=== PATIENT | male | born 1970 | race Caucasian/White ===

== ENCOUNTER 2023-06-01 21:03 | Inpatient (IN) | payer MEDICAID, OTHER ==
[~2023-06-01] VITALS: Ht 172.7 cm; Wt 89.9 kg
[2023-06-01] MEDS: SODIUM CHLORIDE 0.9% 1,000 ML IV ONE (00:45)
[2023-06-01 21:45] VITALS: PULSE 105; RESP 25; O2SAT 96
[2023-06-01 22:24] LABS: Basophils # (auto) 0 10 ^3/uL (0-0.2); Basophils % (auto) 0.1 % (0.0-2.0); Eosinophils # (auto) 0 10 ^3/uL (0-0.8); Eosinophils % (auto) 0.2 % (0.0-7.0); Hemoglobin 14.7 g/dL (13.5-17.5); Neutrophils # (auto) 10.8 10 ^3/uL (1.6-8.6); Nucleated Red Blood Cells % 0.3 %
[2023-06-01 22:26] LABS: Hematocrit 45.7 % (41.0-53.0); Lymphocytes # (auto) 0.4 10 ^3/uL (0.4-5.4); Lymphocytes % (auto) 3.9 % (10.0-50.0); Mean Corpuscular Hemoglobin 25.4 pg (28.0-32.0); Mean Corpuscular Hgb Conc. 32.2 g/dL (32.0-36.0); Mean Corpuscular Volume 78.7 fL (80.0-100.0); Monocytes # (auto) 0.2 10 ^3/uL (0-1.3); Monocytes % (auto) 1.6 % (0.0-12.0); Neutrophils % (auto) 94.2 % (37.0-80.0); Red Cell Distribution Width 16.7 % (11.8-14.3); White Blood Cell 11.4 10^3/uL (4.4-10.8)
[2023-06-01 22:42] LABS: Alanine Aminotransferase 32 U/L (7-40); Albumin 3.1 g/dL (3.2-4.8); Alkaline Phosphatase 412 U/L (46-116); Anion Gap 9 (5-15); Aspartate Aminotransferase 25 U/L (13-40); BUN/Creatinine Ratio 14.9 (10.0-20.0); Blood Urea Nitrogen 33 mg/dL (9-23); Calcium 9.6 mg/dL (8.7-10.4); Carbon Dioxide 23 mmol/L (20-30); Chloride 96 mmol/L (98-107); Glucose 136 mg/dL (74-106); Lipase 25 U/L (12-53); Potassium 4.3 mmol/L (3.5-5.1); Sodium 128 mmol/L (136-145)
[2023-06-01 22:43] LABS: Bilirubin, Total 5.1 mg/dL (0.2-1.0); Total Protein 6.1 g/dL (5.7-8.2)
[2023-06-01 22:46] LABS: INR 1.5 (0.9-1.15); Partial Thromboplastin Time 36.2 SEC (24.5-34.5); Prothrombin Time 15.3 sec (9.3-11.8)
[2023-06-01] MEDS: FUROSEMIDE 100 MG/10ML VIAL IV ONE (23:58)
[2023-06-02] MEDS: PIPERACILLIN-TAZO 4.5GM 100 ML IV ONE
[2023-06-02] MEDS: VANCOMYCIN 1GM/200ML 200 ML IV ONE (00:03)
[2023-06-02 00:20] LABS: Lactic Acid w/Reflex 4.3 mmol/L (0.4-2.0)
[2023-06-02] MEDS ORDERED: ACETAMINOPHEN 325 MG TAB PO PRN (00:45)
[2023-06-02] MEDS: SODIUM CHLORIDE 0.9% 1,000 ML IV SCH (00:45)
[2023-06-02] MEDS: AMPICILLIN & SULBACTAM SODIUM 3 GM in SODIUM CHL 0.9% 100 ML IV ONE (01:30)
[2023-06-02] MEDS: levoFLOXacin 750MG 150 ML IV ONE (03:25)
[2023-06-02] MEDS: MORPHINE SULFATE 4 MG/ML SYR/VIAL IV ONE (03:27)
[2023-06-02] MEDS: ONDANSETRON HCL 4 MG/2 ML VIAL IV ONE (03:28)
[2023-06-02 05:50] LABS: Basophils # (auto) 0 10 ^3/uL (0-0.2); Eosinophils # (auto) 0 10 ^3/uL (0-0.8); Hematocrit 43.3 % (41.0-53.0); Lymphocytes # (auto) 0.5 10 ^3/uL (0.4-5.4); Neutrophils # (auto) 12.2 10 ^3/uL (1.6-8.6); White Blood Cell 13.1 10^3/uL (4.4-10.8)
[2023-06-02 05:53] LABS: Basophils % (auto) 0.1 % (0.0-2.0); Eosinophils % (auto) 0.2 % (0.0-7.0); Hemoglobin 14.2 g/dL (13.5-17.5); Lymphocytes % (auto) 3.7 % (10.0-50.0); Mean Corpuscular Hgb Conc. 32.9 g/dL (32.0-36.0); Monocytes # (auto) 0.4 10 ^3/uL (0-1.3); Monocytes % (auto) 2.8 % (0.0-12.0); Neutrophils % (auto) 93.2 % (37.0-80.0); Nucleated Red Blood Cells % 0.6 %; Red Blood Cells 5.48 10^6/uL (4.5-5.90); Red Cell Distribution Width 16.8 % (11.8-14.3)
[2023-06-02 05:59] LABS: Alanine Aminotransferase 32 U/L (7-40); Alkaline Phosphatase 409 U/L (46-116); Anion Gap 12 (5-15); BUN/Creatinine Ratio 19.4 (10.0-20.0); Carbon Dioxide 19 mmol/L (20-30); Chloride 98 mmol/L (98-107); Glucose 119 mg/dL (74-106); Potassium 4.4 mmol/L (3.5-5.1); Sodium 129 mmol/L (136-145)
[2023-06-02 06:00] LABS: Albumin 2.6 g/dL (3.2-4.8); Aspartate Aminotransferase 28 U/L (13-40); Bilirubin, Total 5.9 mg/dL (0.2-1.0); Total Protein 5.1 g/dL (5.7-8.2)
[2023-06-02] MEDS ORDERED: NITROGLYCERIN 0.4 MG SL TAB SL PRN (06:00)
[2023-06-02] MEDS ORDERED: MORPHINE SULFATE INJ 2 MG/ml SYRG IV PRN (06:00)
[2023-06-02 06:16] LABS: Blood Urea Nitrogen 48 mg/dL (9-23)
[2023-06-02] MEDS: metroNIDAZOLE 500MG/100ML 100 ML IV SCH (06:18)
[2023-06-02] MEDS: ONDANSETRON HCL 4 MG/2 ML VIAL IV PRN (06:51)
[2023-06-02] MEDS: MORPHINE SULFATE INJ 2 MG/ml SYRG IV PRN (06:52)
[2023-06-02 07:32] VITALS: PULSE 113; RESP 13; O2SAT 91
[2023-06-02] MEDS: ALBUMIN 25% 100 ML IV ONE (08:37)
[2023-06-02] MEDS: cefTRIAXone 1GM/50ML D5W 50 ML IV SCH (09:26)
[2023-06-02 09:37] LABS: Urine Bacteria FEW /hpf (None Seen); Urine Blood TRACE /uL (Negative); Urine Clarity Turbid (Clear); Urine Color Dark-Yellow (Yellow); Urine Protein, UAD 2+ (Negative); Urine Sperm PRESENT /hpf (None Seen); Urine Urobilinogen 2 mg/dL (Negative); Urine WBC 2 /hpf (0 - 3); Urine pH 5.5 (5.0-9.0)
[2023-06-02 09:39] LABS: Amphetamine Screen, Urine Pos (NEGATIVE); Barbiturate Scree,Urine Neg (NEGATIVE); Benzodiazephine Screen, Urine Neg (NEGATIVE); Cannabinoid Screen, Urine Neg (NEGATIVE); Cocaine Screen, Urine Neg (NEGATIVE); Opiate Scree,Urine Neg (NEGATIVE); Phencyclidine Screen, Urine Neg (NEGATIVE)
[2023-06-02] MEDS ORDERED: VANCOMYCIN 1GM/200ML 200 ML IV SCH (10:00)
[2023-06-02] MEDS: CARVEDILOL 12.5 MG TAB PO ONE (17:21)
[2023-06-02 17:30] LABS: Triglycerides 152 mg/dL (< 150)
[2023-06-02 17:31] LABS: LDL Cholesterol 42 mg/dL (< 100)
[2023-06-02 17:32] LABS: Cholesterol 99 mg/dL (< 200); HDL Cholesterol < 5 mg/dL (40-59)
[2023-06-02] MEDS ORDERED: FUROSEMIDE 40 MG/4 ML VIAL IV SCH (18:00)
[2023-06-02 19:00] VITALS: O2SAT 98
[2023-06-02 20:30] VITALS: PULSE 98; RESP 19; O2SAT 97
[2023-06-02 21:16] VITALS: BP 129/86; PULSE 105; RESP 19; TEMP 97.7; O2SAT 98
[2023-06-02] MEDS: ATORVASTATIN 20 MG TAB PO SCH (22:58)
[2023-06-02] MEDS: CARVEDILOL 12.5 MG TAB PO SCH (22:58)
[2023-06-02] MEDS: HEPARIN SODIUM (PORCINE) 5000 UNITS/ML 1ML VIAL SC SCH (23:05)
[2023-06-03] VITALS (9 sets, daily range): BP systolic 109–127; BP diastolic 73–83; PULSE 79–98; RESP 16–20; TEMP 97.4–98; O2SAT 91–100
[2023-06-03] MEDS: FUROSEMIDE INJECTION 100 MG in SODIUM CHL 0.9% 100 ML IV SCH (04:59)
[2023-06-03 05:08] LABS: Hemoglobin 13.1 g/dL (13.5-17.5); Mean Corpuscular Hemoglobin 25.5 pg (28.0-32.0); Mean Corpuscular Volume 79.6 fL (80.0-100.0); Red Blood Cells 5.15 10^6/uL (4.5-5.90); Red Cell Distribution Width 16.7 % (11.8-14.3); White Blood Cell 28.3 10^3/uL (4.4-10.8)
[2023-06-03 05:17] LABS: Basophils % (manual) 0 (0.0-2.0); Blast Cells 0; Metamyelocytes % 0; Myelocytes % 0; Promyelocytes % 0; Reactive Lymphocytes 0
[2023-06-03 05:29] LABS: Alanine Aminotransferase 25 U/L (7-40); Albumin 2.8 g/dL (3.2-4.8); Alkaline Phosphatase 420 U/L (46-116); Anion Gap 8 (5-15); Aspartate Aminotransferase 29 U/L (13-40); BUN/Creatinine Ratio 18.9 (10.0-20.0); Calcium 9.6 mg/dL (8.7-10.4); Carbon Dioxide 26 mmol/L (20-30); Chloride 97 mmol/L (98-107); Glucose 150 mg/dL (74-106); Potassium 4.5 mmol/L (3.5-5.1); Sodium 131 mmol/L (136-145)
[2023-06-03 05:30] LABS: Bilirubin, Total 6.8 mg/dL (0.2-1.0); Total Protein 5.5 g/dL (5.7-8.2)
[2023-06-03 05:38] LABS: Blood Urea Nitrogen 58 mg/dL (9-23)
[2023-06-03 07:30] LABS: Band Neutrophils % (manual) 11; Eosinophils % (manual) 1 (0-7); Lymphocytes % (manual) 5 (10.0-50.0); Monocytes % (manual) 3 (0-12); Platelet Estimate Adequate
[2023-06-03] MEDS: ASPirin 81 mg TAB PO SCH (09:50)
[2023-06-03] MEDS: ALBUMIN 25% 100 ML IV SCH (09:53)
[2023-06-03] MEDS: HYDROcodone-ACET 5/325MG TAB PO PRN (15:52)
[2023-06-03] MEDS: CLINDAMYCIN 300MG IV 50 ML IV SCH (15:54)
[2023-06-04] VITALS (8 sets, daily range): BP systolic 103–132; BP diastolic 71–94; PULSE 69–82; RESP 17–20; TEMP 97.1–98.3; O2SAT 95–100
[2023-06-04 06:01] LABS: Hematocrit 38.9 % (41.0-53.0); Hemoglobin 12.5 g/dL (13.5-17.5); Mean Corpuscular Hemoglobin 25.1 pg (28.0-32.0); Mean Corpuscular Hgb Conc. 32.1 g/dL (32.0-36.0); Mean Corpuscular Volume 78.4 fL (80.0-100.0); Red Blood Cells 4.96 10^6/uL (4.5-5.90); Red Cell Distribution Width 17.4 % (11.8-14.3); White Blood Cell 27.5 10^3/uL (4.4-10.8)
[2023-06-04 06:07] LABS: Chloride 96 mmol/L (98-107); Potassium 4.7 mmol/L (3.5-5.1); Sodium 129 mmol/L (136-145)
[2023-06-04 06:08] LABS: Anion Gap 7 (5-15); Calcium 9.8 mg/dL (8.7-10.4); Carbon Dioxide 26 mmol/L (20-30)
[2023-06-04 06:13] LABS: Glucose 152 mg/dL (74-106)
[2023-06-04 06:14] LABS: Magnesium 2.6 mg/dL (1.6-2.6)
[2023-06-04 06:23] LABS: BUN/Creatinine Ratio 24.1 (10.0-20.0)
[2023-06-04 06:24] LABS: Band Neutrophils % (manual) 0; Basophils % (manual) 0 (0.0-2.0); Blast Cells 0; Blood Urea Nitrogen 76 mg/dL (9-23); Metamyelocytes % 0; Myelocytes % 0; Promyelocytes % 0; Reactive Lymphocytes 0
[2023-06-04 09:04] LABS: Eosinophils % (manual) 1 (0-7); Lymphocytes % (manual) 5 (10.0-50.0); Monocytes % (manual) 2 (0-12); Platelet Estimate Adequate
[2023-06-04] MEDS: FUROSEMIDE INJECTION 100 MG in SODIUM CHL 0.9% 100 ML IV SCH (10:34)
[2023-06-04 11:39] LABS: Sodium Urine < 10 mmol/L (40-220)
[2023-06-04 11:44] LABS: Protein, Urine 53.3 mg/dL (0.0-11.9)
[2023-06-04 11:46] LABS: Creatinine, Urine 65.79 mg/dL (30.0-125.0); Urine Protein/Creatinine Ratio 0.81
[2023-06-04] MEDS: PANTOPRAZOLE 40 MG TAB PO SCH (18:37)
[2023-06-05] VITALS (7 sets, daily range): BP systolic 110–123; BP diastolic 68–75; PULSE 66–71; RESP 18–20; TEMP 97.3–98.9; O2SAT 91–96
[2023-06-05 07:07] LABS: Hematocrit 42.3 % (41.0-53.0); Red Blood Cells 5.36 10^6/uL (4.5-5.90)
[2023-06-05 07:10] LABS: Hemoglobin 13.3 g/dL (13.5-17.5); Mean Corpuscular Hemoglobin 24.8 pg (28.0-32.0); Mean Corpuscular Hgb Conc. 31.3 g/dL (32.0-36.0); White Blood Cell 23.8 10^3/uL (4.4-10.8)
[2023-06-05 07:52] LABS: Basophils % (manual) 0 (0.0-2.0); Blast Cells 0; Eosinophils % (manual) 0 (0-7); Metamyelocytes % 0; Myelocytes % 0; Promyelocytes % 0; Reactive Lymphocytes 0
[2023-06-05 08:50] LABS: Blood Urea Nitrogen 64 mg/dL (9-23)
[2023-06-05 09:05] LABS: Band Neutrophils % (manual) 8; Lymphocytes % (manual) 16 (10.0-50.0); Monocytes % (manual) 6 (0-12)
[2023-06-05 09:17] LABS: Anion Gap 11 (5-15); BUN/Creatinine Ratio 21.8 (10.0-20.0); Carbon Dioxide 19 mmol/L (20-30); Chloride 98 mmol/L (98-107); Glucose 135 mg/dL (74-106); Potassium 5.3 mmol/L (3.5-5.1); Sodium 128 mmol/L (136-145)
[2023-06-05 09:24] LABS: Platelet Estimate Adequate
[2023-06-05 13:23] LABS: Magnesium 2.9 mg/dL (1.6-2.6)
[2023-06-05] MEDS: ALPRAZolam 0.5 MG TAB PO SCH (16:44)
[2023-06-05] MEDS: MEROPENEM 500MG IVPB 50 ML IV SCH (22:43)
[2023-06-05] MEDS: FUROSEMIDE INJECTION 10 ML ONE (23:49)
[2023-06-06] VITALS (7 sets, daily range): BP systolic 93–143; BP diastolic 41–79; PULSE 63–80; RESP 17–24; TEMP 97.3–98.4; O2SAT 21–100
[2023-06-06 06:22] LABS: Hematocrit 41.8 % (41.0-53.0); Hemoglobin 13.2 g/dL (13.5-17.5); Mean Corpuscular Hemoglobin 25.4 pg (28.0-32.0); Mean Corpuscular Hgb Conc. 31.6 g/dL (32.0-36.0); Mean Corpuscular Volume 80.6 fL (80.0-100.0); Red Blood Cells 5.19 10^6/uL (4.5-5.90); Red Cell Distribution Width 17.5 % (11.8-14.3); White Blood Cell 27.8 10^3/uL (4.4-10.8)
[2023-06-06 06:26] LABS: Band Neutrophils % (manual) 0; Basophils % (manual) 0 (0.0-2.0); Blast Cells 0; Eosinophils % (manual) 0 (0-7); Metamyelocytes % 0; Myelocytes % 0; Promyelocytes % 0; Reactive Lymphocytes 0
[2023-06-06 06:28] LABS: Anion Gap 10 (5-15); Carbon Dioxide 21 mmol/L (20-30); Chloride 98 mmol/L (98-107); Potassium 5.2 mmol/L (3.5-5.1); Sodium 129 mmol/L (136-145)
[2023-06-06 06:30] LABS: Calcium 8.9 mg/dL (8.5-10.1)
[2023-06-06 06:34] LABS: Glucose 154 mg/dL (74-106)
[2023-06-06 06:41] LABS: BUN/Creatinine Ratio 19.5 (10.0-20.0)
[2023-06-06 06:50] LABS: Blood Urea Nitrogen 51 mg/dL (9-23)
[2023-06-06 08:18] LABS: Lymphocytes % (manual) 6 (10.0-50.0); Monocytes % (manual) 3 (0-12); Platelet Estimate Adequate
[2023-06-06] MEDS: LINEZOLID 600MG/300ML 300 ML IV SCH (21:35)
[2023-06-06] MEDS: MEROPENEM 1GM IVPB 50 ML IV SCH (22:09)
[2023-06-07] VITALS (7 sets, daily range): BP systolic 101–150; BP diastolic 56–78; PULSE 69–94; RESP 18–22; TEMP 96.4–98.6; O2SAT 93–100
[2023-06-07 10:34] LABS: Alanine Aminotransferase 41 U/L (7-40); Albumin 2.8 g/dL (3.2-4.8); Anion Gap 11 (5-15); Aspartate Aminotransferase 80 U/L (13-40); Bilirubin, Total 11.1 mg/dL (0.2-1.0); Blood Urea Nitrogen 60 mg/dL (9-23); Calcium 8.8 mg/dL (8.5-10.1); Carbon Dioxide 24 mmol/L (20-30); Chloride 101 mmol/L (98-107); Glucose 144 mg/dL (74-106); Potassium 3.6 mmol/L (3.5-5.1); Sodium 136 mmol/L (136-145); Total Protein 5.5 g/dL (5.7-8.2)
[2023-06-07 10:37] LABS: BUN/Creatinine Ratio 27.3 (10.0-20.0)
[2023-06-07 10:41] LABS: Alkaline Phosphatase 995 U/L (46-116)
[2023-06-07 11:32] LABS: Basophils # (auto) 0.1 10 ^3/uL (0-0.2); Basophils % (auto) 0.2 % (0.0-2.0); Eosinophils # (auto) 1.6 10 ^3/uL (0-0.8); Eosinophils % (auto) 5.7 % (0.0-7.0); Hematocrit 40.2 % (41.0-53.0); Lymphocytes # (auto) 1.2 10 ^3/uL (0.4-5.4); Lymphocytes % (auto) 4.3 % (10.0-50.0); Mean Corpuscular Hemoglobin 24.9 pg (28.0-32.0); Mean Corpuscular Hgb Conc. 32.3 g/dL (32.0-36.0); Mean Corpuscular Volume 77.1 fL (80.0-100.0); Monocytes # (auto) 0.3 10 ^3/uL (0-1.3); Monocytes % (auto) 1.1 % (0.0-12.0); Neutrophils # (auto) 24.4 10 ^3/uL (1.6-8.6); Neutrophils % (auto) 88.7 % (37.0-80.0); Nucleated Red Blood Cells % 0.1 %; Red Blood Cells 5.21 10^6/uL (4.5-5.90); White Blood Cell 27.5 10^3/uL (4.4-10.8)
[2023-06-07] MEDS ORDERED: DOXYCYCLINE 100MG/250ML 250 ML IV SCH (18:45)
[2023-06-07] MEDS: DOXYCYCLINE 100MG/250ML 250 ML IV SCH (20:14)
[2023-06-08] VITALS (11 sets, daily range): BP systolic 118–186; BP diastolic 76–91; PULSE 77–87; RESP 11–22; TEMP 97.4–97.8; O2SAT 89–99
[2023-06-08 07:29] LABS: Anion Gap 9 (5-15); Calcium 8.8 mg/dL (8.5-10.1); Carbon Dioxide 29 mmol/L (20-30); Chloride 101 mmol/L (98-107); Potassium 3.1 mmol/L (3.5-5.1); Sodium 139 mmol/L (136-145)
[2023-06-08 07:30] LABS: Hemoglobin 13.2 g/dL (13.5-17.5); Mean Corpuscular Hgb Conc. 32.8 g/dL (32.0-36.0); Mean Corpuscular Volume 76.1 fL (80.0-100.0); Red Blood Cells 5.26 10^6/uL (4.5-5.90); Red Cell Distribution Width 16.9 % (11.8-14.3); White Blood Cell 28.2 10^3/uL (4.4-10.8)
[2023-06-08 07:35] LABS: Blood Urea Nitrogen 62 mg/dL (9-23); Glucose 172 mg/dL (74-106)
[2023-06-08 07:46] LABS: Basophils % (manual) 0 (0.0-2.0); Blast Cells 0; Myelocytes % 0; Promyelocytes % 0; Reactive Lymphocytes 0
[2023-06-08 08:34] LABS: Band Neutrophils % (manual) 6; Eosinophils % (manual) 5 (0-7); Lymphocytes % (manual) 4 (10.0-50.0); Metamyelocytes % 2; Monocytes % (manual) 6 (0-12)
[2023-06-08 08:35] LABS: Anisocytosis Slight
[2023-06-08 08:36] LABS: Platelet Estimate Adequate
[2023-06-08] MEDS: FUROSEMIDE INJECTION 100 MG in SODIUM CHL 0.9% 100 ML IV SCH (11:15)
[2023-06-08 12:19] LABS: Albumin 2.7 g/dL (3.2-4.8); Bilirubin, Direct 8.3 mg/dL (<0.3); Bilirubin, Total 10.8 mg/dL (0.2-1.0); Total Protein 5.3 g/dL (5.7-8.2)
[2023-06-08] MEDS: hydrALAZINE HCL 20 MG/ML VL IV ONE (12:19)
[2023-06-08] MEDS: LORazepam 2MG/ML-1ML VIAL IV ONE ×3 (12:20→22:48)
[2023-06-08 12:31] LABS: Lipase 99 U/L (12-53)
[2023-06-08 12:33] LABS: Amylase 119 U/L (30-118)
[2023-06-08] MEDS: POTASSIUM CHL 20MEQ/100ML 100 ML IV SCH (16:15)
[2023-06-08] MEDS: HEPARIN SODIUM (PORCINE) 5000 UNITS/ML 1ML VIAL IV ONE (20:15)
[2023-06-09] VITALS (13 sets, daily range): BP systolic 141–191; BP diastolic 69–87; PULSE 69–94; RESP 11–16; TEMP 97.1–98.3; O2SAT 90–100
[2023-06-09] MEDS: LINEZOLID 600MG/300ML 300 ML IV SCH (01:00)
[2023-06-09] MEDS: LABETALOL HCL 5 MG/ML 4ML SYRINGE IV ONE (02:37)
[2023-06-09 05:42] LABS: Chloride 106 mmol/L (98-107); Hemoglobin 12.7 g/dL (13.5-17.5); Potassium 3.2 mmol/L (3.5-5.1); White Blood Cell 22.8 10^3/uL (4.4-10.8)
[2023-06-09 05:43] LABS: Anion Gap 7 (5-15); Calcium 8.7 mg/dL (8.5-10.1); Carbon Dioxide 32 mmol/L (20-30)
[2023-06-09 05:44] LABS: Hematocrit 38.8 % (41.0-53.0); Mean Corpuscular Hemoglobin 25.3 pg (28.0-32.0); Mean Corpuscular Hgb Conc. 32.8 g/dL (32.0-36.0); Red Blood Cells 5.04 10^6/uL (4.5-5.90); Red Cell Distribution Width 17.1 % (11.8-14.3)
[2023-06-09 05:49] LABS: BUN/Creatinine Ratio 26.9 (10.0-20.0); Blood Urea Nitrogen 45 mg/dL (9-23); Glucose 166 mg/dL (74-106); Sodium 145 mmol/L (136-145)
[2023-06-09 05:52] LABS: Basophils % (manual) 0 (0.0-2.0); Blast Cells 0; Eosinophils % (manual) 0 (0-7); Myelocytes % 0; Promyelocytes % 0; Reactive Lymphocytes 0
[2023-06-09 06:52] LABS: Band Neutrophils % (manual) 2; Hypochromia Slight; Lymphocytes % (manual) 16 (10.0-50.0); Metamyelocytes % 1; Monocytes % (manual) 6 (0-12); Platelet Estimate Adequate; Target Cell FEW
[2023-06-09 09:29] LABS: INR 1.45 (0.9-1.15); Partial Thromboplastin Time 36.1 SEC (24.5-34.5); Prothrombin Time 14.9 sec (9.3-11.8)
[2023-06-09] MEDS: POTASSIUM CHL 20MEQ/100ML 100 ML IV SCH (10:20)
[2023-06-09] MEDS: hydrALAZINE HCL 20 MG/ML VL IV PRN (10:21)
[2023-06-09] MEDS: LORazepam 2MG/ML-1ML VIAL IV PRN ×2 (10:39→16:22)
[2023-06-09] MEDS: LIDOCAINE 1% (LOCAL ANESTH.) PF 5ml SDV ID ONE (12:05)
[2023-06-09] MEDS ORDERED: POTASSIUM CHL 20MEQ/100ML 100 ML IV SCH (12:15)
[2023-06-09] MEDS: FUROSEMIDE 40 MG/4 ML VIAL IV SCH (16:15)
[2023-06-09] MEDS: FLUCONAZOLE 200MG/100ML 100 ML IV ONE (16:37)
[2023-06-09] MEDS: SODIUM CHLOR 0.9% PF (SALINE LOCK) 10ML VIAL/SYR IV SCH (22:08)
[2023-06-10] VITALS (19 sets, daily range): BP systolic 136–185; BP diastolic 67–100; PULSE 81–100; RESP 11–21; TEMP 97.3–98.9; O2SAT 93–99
[2023-06-10 05:53] LABS: Eosinophils # (auto) 0.1 10 ^3/uL (0-0.8); White Blood Cell 20.2 10^3/uL (4.4-10.8)
[2023-06-10 05:56] LABS: Basophils # (auto) 0.1 10 ^3/uL (0-0.2); Basophils % (auto) 0.3 % (0.0-2.0); Eosinophils % (auto) 0.3 % (0.0-7.0); Hemoglobin 12.5 g/dL (13.5-17.5); Lymphocytes # (auto) 1.5 10 ^3/uL (0.4-5.4); Lymphocytes % (auto) 7.6 % (10.0-50.0); Mean Corpuscular Hemoglobin 25.2 pg (28.0-32.0); Mean Corpuscular Hgb Conc. 32.9 g/dL (32.0-36.0); Mean Corpuscular Volume 76.8 fL (80.0-100.0); Monocytes # (auto) 1.3 10 ^3/uL (0-1.3); Monocytes % (auto) 6.4 % (0.0-12.0); Neutrophils # (auto) 17.2 10 ^3/uL (1.6-8.6); Neutrophils % (auto) 85.4 % (37.0-80.0); Red Blood Cells 4.95 10^6/uL (4.5-5.90); Red Cell Distribution Width 17.6 % (11.8-14.3)
[2023-06-10 06:06] LABS: Alanine Aminotransferase 38 U/L (7-40); Albumin 2.8 g/dL (3.2-4.8); Alkaline Phosphatase 885 U/L (46-116); Amylase 95 U/L (30-118); Anion Gap 4 (5-15); Aspartate Aminotransferase 66 U/L (13-40); BUN/Creatinine Ratio 23.9 (10.0-20.0); Carbon Dioxide 32 mmol/L (20-30); Chloride 108 mmol/L (98-107); Glucose 156 mg/dL (74-106); Lipase 60 U/L (12-53); Potassium 3.5 mmol/L (3.5-5.1); Sodium 144 mmol/L (136-145)
[2023-06-10 06:07] LABS: Total Protein 6.1 g/dL (5.7-8.2)
[2023-06-10 06:16] LABS: Blood Urea Nitrogen 32 mg/dL (9-23)
[2023-06-10] MEDS: LABETALOL HCL 5 MG/ML 4ML SYRINGE IV PRN (10:07)
[2023-06-10] MEDS: FLUCONAZOLE 200MG/100ML 100 ML IV SCH (10:11)
[2023-06-10] MEDS: SPIRONOLACTONE 25 MG TAB PO SCH (12:15)
[2023-06-10] MEDS: amLODIPine BESYLATE 5 MG TAB PO SCH (12:30)
[2023-06-11] VITALS (20 sets, daily range): BP systolic 111–201; BP diastolic 50–106; PULSE 78–89; RESP 12–23; TEMP 97.6–98.5; O2SAT 91–100
[2023-06-11 05:07] LABS: RPR Non Reactive (Non Reactive)
[2023-06-11 06:18] LABS: Chloride 105 mmol/L (98-107); Potassium 3.6 mmol/L (3.5-5.1); Sodium 139 mmol/L (136-145)
[2023-06-11 06:19] LABS: Anion Gap 5 (5-15); Carbon Dioxide 29 mmol/L (20-30)
[2023-06-11 06:24] LABS: BUN/Creatinine Ratio 20.5 (10.0-20.0); Blood Urea Nitrogen 25 mg/dL (9-23); Glucose 172 mg/dL (74-106)
[2023-06-12] VITALS (8 sets, daily range): BP systolic 124–159; BP diastolic 70–94; PULSE 83–92; RESP 18–20; TEMP 97.8–99.7; O2SAT 94–100
[2023-06-12 08:34] LABS: Anion Gap 7 (5-15); Carbon Dioxide 28 mmol/L (20-30); Chloride 101 mmol/L (98-107); Potassium 3.9 mmol/L (3.5-5.1); Sodium 136 mmol/L (136-145)
[2023-06-12 08:35] LABS: Calcium 8.8 mg/dL (8.5-10.1)
[2023-06-12 08:40] LABS: BUN/Creatinine Ratio 24.2 (10.0-20.0); Blood Urea Nitrogen 30 mg/dL (9-23); Glucose 141 mg/dL (74-106)
[2023-06-12] MEDS: LOSARTAN POTASSIUM 50 MG TAB PO SCH (14:15)
[2023-06-12] MEDS: MEROPENEM 1GM IVPB 50 ML IV SCH (22:34)
[2023-06-13] VITALS (10 sets, daily range): BP systolic 98–172; BP diastolic 51–95; PULSE 61–91; RESP 18–20; TEMP 96.4–99.3; O2SAT 94–100
[2023-06-13 06:57] LABS: Chloride 100 mmol/L (98-107); Potassium 4.2 mmol/L (3.5-5.1)
[2023-06-13 06:58] LABS: Anion Gap 7 (5-15); Carbon Dioxide 24 mmol/L (20-30)
[2023-06-13 06:59] LABS: Calcium 8.9 mg/dL (8.7-10.4)
[2023-06-13 07:03] LABS: Glucose 202 mg/dL (74-106)
[2023-06-13 07:04] LABS: Blood Urea Nitrogen 29 mg/dL (9-23); Sodium 131 mmol/L (136-145)
[2023-06-13] MEDS: FUROSEMIDE 40 MG/4 ML VIAL IV SCH (09:48)
[2023-06-14] VITALS (9 sets, daily range): BP systolic 108–150; BP diastolic 63–72; PULSE 88–93; RESP 18–20; TEMP 97.7–101.4; O2SAT 96–98
[2023-06-14 05:50] LABS: Chloride 102 mmol/L (98-107); Potassium 4.4 mmol/L (3.5-5.1); Sodium 134 mmol/L (136-145)
[2023-06-14 05:51] LABS: Anion Gap 6 (5-15); Basophils # (auto) 0.1 10 ^3/uL (0-0.2); Calcium 8.4 mg/dL (8.5-10.1); Carbon Dioxide 26 mmol/L (20-30); Eosinophils # (auto) 0.1 10 ^3/uL (0-0.8); Lymphocytes # (auto) 1.6 10 ^3/uL (0.4-5.4); Red Blood Cells 4.42 10^6/uL (4.5-5.90)
[2023-06-14 05:54] LABS: Basophils % (auto) 0.6 % (0.0-2.0); Eosinophils % (auto) 0.7 % (0.0-7.0); Hematocrit 33.7 % (41.0-53.0); Lymphocytes % (auto) 9.3 % (10.0-50.0); Mean Corpuscular Hemoglobin 24.8 pg (28.0-32.0); Mean Corpuscular Hgb Conc. 32.5 g/dL (32.0-36.0); Mean Corpuscular Volume 76.4 fL (80.0-100.0); Monocytes # (auto) 2.4 10 ^3/uL (0-1.3); Monocytes % (auto) 13.6 % (0.0-12.0); Neutrophils # (auto) 13.4 10 ^3/uL (1.6-8.6); Neutrophils % (auto) 75.8 % (37.0-80.0); Red Cell Distribution Width 18.8 % (11.8-14.3); White Blood Cell 17.7 10^3/uL (4.4-10.8)
[2023-06-14 05:56] LABS: BUN/Creatinine Ratio 27.8 (10.0-20.0); Blood Urea Nitrogen 35 mg/dL (9-23); Glucose 235 mg/dL (74-106)
[2023-06-14] MEDS: DOCUSATE SOD 100 MG CAP PO PRN (21:12)
[2023-06-15] VITALS (7 sets, daily range): BP systolic 105–137; BP diastolic 54–79; PULSE 84–91; RESP 16–20; TEMP 97.9–98.7; O2SAT 95–98
[2023-06-15] MEDS: HYDROcodone-ACET 5/325MG TAB PO PRN (08:30)
[2023-06-15 10:25] LABS: Basophils # (auto) 0.1 10 ^3/uL (0-0.2); Basophils % (auto) 0.7 % (0.0-2.0); Eosinophils # (auto) 0.2 10 ^3/uL (0-0.8); Hematocrit 33.1 % (41.0-53.0); Hemoglobin 10.8 g/dL (13.5-17.5); Lymphocytes # (auto) 1.7 10 ^3/uL (0.4-5.4); Lymphocytes % (auto) 9.8 % (10.0-50.0); Mean Corpuscular Hemoglobin 25.6 pg (28.0-32.0); Mean Corpuscular Hgb Conc. 32.4 g/dL (32.0-36.0); Mean Corpuscular Volume 78.9 fL (80.0-100.0); Monocytes # (auto) 2.5 10 ^3/uL (0-1.3); Monocytes % (auto) 14.9 % (0.0-12.0); Neutrophils # (auto) 12.5 10 ^3/uL (1.6-8.6); Neutrophils % (auto) 73.6 % (37.0-80.0); White Blood Cell 16.9 10^3/uL (4.4-10.8)
[2023-06-15 10:43] LABS: Alanine Aminotransferase 46 U/L (7-40); Albumin 2.9 g/dL (3.2-4.8); Alkaline Phosphatase 739 U/L (46-116); Anion Gap 5 (5-15); Aspartate Aminotransferase 61 U/L (13-40); Blood Urea Nitrogen 30 mg/dL (9-23); Calcium 8.5 mg/dL (8.5-10.1); Carbon Dioxide 25 mmol/L (20-30); Chloride 101 mmol/L (98-107); Glucose 204 mg/dL (74-106); Potassium 4.5 mmol/L (3.5-5.1); Sodium 131 mmol/L (136-145)
[2023-06-15 10:44] LABS: Bilirubin, Total 5.8 mg/dL (0.2-1.0); Total Protein 6.5 g/dL (5.7-8.2)
[2023-06-16 01:00] VITALS: BP 120/82; PULSE 82; RESP 16; TEMP 97.8; O2SAT 96
[2023-06-16 05:00] VITALS: BP 118/65; PULSE 81; RESP 18; TEMP 98; O2SAT 98
[2023-06-16 07:09] LABS: Basophils # (auto) 0.1 10 ^3/uL (0-0.2); Eosinophils # (auto) 0.1 10 ^3/uL (0-0.8)
[2023-06-16 07:11] LABS: Basophils % (auto) 0.8 % (0.0-2.0); Lymphocytes # (auto) 1.6 10 ^3/uL (0.4-5.4); Lymphocytes % (auto) 11.7 % (10.0-50.0); Mean Corpuscular Hemoglobin 24.5 pg (28.0-32.0); Mean Corpuscular Hgb Conc. 31.5 g/dL (32.0-36.0); Mean Corpuscular Volume 77.9 fL (80.0-100.0); Monocytes % (auto) 14.6 % (0.0-12.0); Neutrophils # (auto) 10.1 10 ^3/uL (1.6-8.6); Neutrophils % (auto) 71.9 % (37.0-80.0); Nucleated Red Blood Cells % 0.1 %; Red Cell Distribution Width 19.1 % (11.8-14.3); White Blood Cell 14.1 10^3/uL (4.4-10.8)
[2023-06-16 07:26] LABS: Alanine Aminotransferase 50 U/L (7-40); Alkaline Phosphatase 710 U/L (46-116); Anion Gap 8 (5-15); BUN/Creatinine Ratio 25.2 (10.0-20.0); Blood Urea Nitrogen 36 mg/dL (9-23); Calcium 9.1 mg/dL (8.7-10.4); Carbon Dioxide 25 mmol/L (20-30); Chloride 99 mmol/L (98-107); Glucose 193 mg/dL (74-106); Potassium 4.7 mmol/L (3.5-5.1); Sodium 132 mmol/L (136-145)
[2023-06-16 07:27] LABS: Albumin 3.2 g/dL (3.2-4.8); Aspartate Aminotransferase 51 U/L (13-40); Bilirubin, Total 5.3 mg/dL (0.2-1.0)
[2023-06-16 09:36] VITALS: BP 98/54; PULSE 88; RESP 20; TEMP 97.9; O2SAT 97
[2023-06-16 13:00] VITALS: BP 117/63; PULSE 87; RESP 20; O2SAT 98
[2023-06-16 17:03] VITALS: BP 133/71; PULSE 90; RESP 20; TEMP 98.5; O2SAT 98
[2023-06-16 21:38] VITALS: BP 138/63; PULSE 95; RESP 18; TEMP 98.4; O2SAT 100
[2023-06-17] VITALS (8 sets, daily range): BP systolic 108–127; BP diastolic 64–68; PULSE 77–83; RESP 16–18; TEMP 98–98.6; O2SAT 97–100
[2023-06-17] MEDS: HYDROcodone-ACET 5/325MG TAB PO ONE (00:36)
[2023-06-17] MEDS ORDERED: SPIR25TA PO (10:07)
[2023-06-17] MEDS ORDERED: HYDR-4902 PO (10:07)
[2023-06-17] MEDS ORDERED: AMLO1TAB23 PO (10:07)
[2023-06-17] MEDS ORDERED: LOSA-534 PO (10:07)
[2023-06-17] MEDS ORDERED: CARV6.2551 PO (10:07)
[2023-06-17] MEDS ORDERED: FURO1TAB31 PO (10:07)
[2023-06-17] MEDS ORDERED: DOXY-346 PO (10:07)
[2023-06-17] MEDS ORDERED: PANT40T PO (10:07)
[2023-06-17 10:15] LABS: Basophils # (auto) 0.2 10 ^3/uL (0-0.2); Eosinophils # (auto) 0.2 10 ^3/uL (0-0.8); Hematocrit 31.1 % (41.0-53.0); Lymphocytes # (auto) 1.5 10 ^3/uL (0.4-5.4); Monocytes # (auto) 1.8 10 ^3/uL (0-1.3); Monocytes % (auto) 15.2 % (0.0-12.0); Neutrophils % (auto) 68.8 % (37.0-80.0); Red Cell Distribution Width 19.4 % (11.8-14.3); White Blood Cell 11.7 10^3/uL (4.4-10.8)
[2023-06-17 10:17] LABS: Basophils % (auto) 1.4 % (0.0-2.0); Lymphocytes % (auto) 12.6 % (10.0-50.0); Mean Corpuscular Hgb Conc. 32.3 g/dL (32.0-36.0); Mean Corpuscular Volume 77.3 fL (80.0-100.0); Nucleated Red Blood Cells % 0.1 %; Red Blood Cells 4.02 10^6/uL (4.5-5.90)
[2023-06-17 10:20] LABS: Alanine Aminotransferase 78 U/L (7-40); Alkaline Phosphatase 924 U/L (46-116); Anion Gap 5 (5-15); Aspartate Aminotransferase 125 U/L (13-40); BUN/Creatinine Ratio 19.8 (10.0-20.0); Bilirubin, Total 6.4 mg/dL (0.2-1.0); Calcium 8.8 mg/dL (8.5-10.1); Carbon Dioxide 25 mmol/L (20-30); Chloride 101 mmol/L (98-107); Glucose 142 mg/dL (74-106); Sodium 131 mmol/L (136-145); Total Protein 6.6 g/dL (5.7-8.2)
[2023-06-17 10:23] LABS: Blood Urea Nitrogen 25 mg/dL (9-23)
[2023-06-18 01:00] VITALS: BP 130/58; PULSE 84; RESP 20; TEMP 98.3; O2SAT 99
[2023-06-18 05:00] VITALS: BP 129/70; PULSE 79; RESP 18; TEMP 98.5; O2SAT 98
[2023-06-18 06:54] LABS: Alanine Aminotransferase 55 U/L (7-40); Albumin 3.3 g/dL (3.2-4.8); Alkaline Phosphatase 776 U/L (46-116); Anion Gap 8 (5-15); Aspartate Aminotransferase 61 U/L (13-40); BUN/Creatinine Ratio 21.3 (10.0-20.0); Bilirubin, Total 4.8 mg/dL (0.2-1.0); Blood Urea Nitrogen 32 mg/dL (9-23); Calcium 9.3 mg/dL (8.5-10.1); Carbon Dioxide 22 mmol/L (20-30); Chloride 100 mmol/L (98-107); Glucose 124 mg/dL (74-106); Potassium 4.7 mmol/L (3.5-5.1); Sodium 130 mmol/L (136-145); Total Protein 7.1 g/dL (5.7-8.2)
[2023-06-18 07:02] LABS: Basophils # (auto) 0.1 10 ^3/uL (0-0.2); Eosinophils # (auto) 0.2 10 ^3/uL (0-0.8); Neutrophils # (auto) 7.1 10 ^3/uL (1.6-8.6); Nucleated Red Blood Cells % 0.1 %
[2023-06-18 07:03] LABS: Basophils % (auto) 0.9 % (0.0-2.0); Eosinophils % (auto) 1.5 % (0.0-7.0); Hematocrit 33.9 % (41.0-53.0); Lymphocytes # (auto) 1.6 10 ^3/uL (0.4-5.4); Lymphocytes % (auto) 15.7 % (10.0-50.0); Mean Corpuscular Hemoglobin 25.9 pg (28.0-32.0); Mean Corpuscular Hgb Conc. 32.6 g/dL (32.0-36.0); Mean Corpuscular Volume 79.5 fL (80.0-100.0); Monocytes # (auto) 1.3 10 ^3/uL (0-1.3); Monocytes % (auto) 12.5 % (0.0-12.0); Neutrophils % (auto) 69.4 % (37.0-80.0); Red Blood Cells 4.26 10^6/uL (4.5-5.90); White Blood Cell 10.3 10^3/uL (4.4-10.8)
[2023-06-18 07:04] LABS: Red Cell Distribution Width 20.1 % (11.8-14.3)
[2023-06-18 07:30] VITALS: RESP 16; O2SAT 99
[2023-06-18 09:18] VITALS: BP 133/62; PULSE 85; RESP 20; TEMP 97.6; O2SAT 96
[2023-06-18 12:24] VITALS: BP 133/62; PULSE 81; RESP 18; TEMP 98; O2SAT 98
[2023-06-18 13:22] VITALS: BP 110/65; PULSE 86; RESP 20; TEMP 98.9; O2SAT 94
== END 2023-06-18 15:20 | disposition home or self-care (01) | DRG 720 ==
LOC: ER 21:03 → EDBD 21:03 → OVERFLOW 06-02 05:51 → CENTRAL 06-02 17:50 → TELE-CENTR 06-07 10:43 → DOU IN ICU 06-08 16:01 → EAST 06-11 15:58 → CENTRAL 06-13 07:37
PROVIDERS: ADMIT Family Medicine; ATTEND Family Medicine
PROC: 02HV33Z Insertion of Infusion Device into Superior Vena Cava, Percutaneous Approach (ICD-10-PCS; principal; 2023-06-09)
PROC: B548ZZA Ultrasonography of Superior Vena Cava, Guidance (ICD-10-PCS; 2023-06-09)
DX: A41.52 Sepsis due to Pseudomonas (principal); J96.01 Acute respiratory failure with hypoxia; N17.0 Acute kidney failure with tubular necrosis; I50.43 Acute on chronic combined systolic (congestive) and diastolic (congestive) heart failure; E87.21 Acute metabolic acidosis; E87.1 Hypo-osmolality and hyponatremia; D68.9 Coagulation defect, unspecified; L03.311 Cellulitis of abdominal wall; L03.115 Cellulitis of right lower limb; I13.0 Hypertensive heart and chronic kidney disease with heart failure and stage 1 through stage 4 chronic kidney disease, or unspecified chronic kidney disease; L03.116 Cellulitis of left lower limb; I16.0 Hypertensive urgency; N50.89 Other specified disorders of the male genital organs; E11.65 Type 2 diabetes mellitus with hyperglycemia; E66.01 Morbid (severe) obesity due to excess calories; F15.10 Other stimulant abuse, uncomplicated; F31.9 Bipolar disorder, unspecified; F43.10 Post-traumatic stress disorder, unspecified; N18.9 Chronic kidney disease, unspecified; B37.49 Other urogenital candidiasis; E11.22 Type 2 diabetes mellitus with diabetic chronic kidney disease; E55.9 Vitamin D deficiency, unspecified; E87.6 Hypokalemia; F17.200 Nicotine dependence, unspecified, uncomplicated; K74.60 Unspecified cirrhosis of liver; E78.00 Pure hypercholesterolemia, unspecified; Z68.30 Body mass index [BMI] 30.0-30.9, adult; Z79.899 Other long term (current) drug therapy; N49.2 Inflammatory disorders of scrotum; K76.0 Fatty (change of) liver, not elsewhere classified; Z91.148 Patient's other noncompliance with medication regimen for other reason
CPT/HCPCS: 36415; 36569; 36600; 70450; 71045; 71250; 74176; 76870; 80048; 80053; 80061; 80076; 80307; 81001; 82140; 82150; 82306; 82570; 82805; 82962; 83036; 83605; 83690; 83735; 83880; 83970; 84100; 84156; 84300; 84443; 84484; 85007; 85025; 85027; 85610; 85730; 86592; 87040; 87077; 87081; 87086; 87088; 92610; 93005; 93306; 93970; 96365; 96367; 96375; 97110; 97116; 97163; 97530; G0378; J1450; J1956; J2185; J2405; J2543; J3480; J3490; P9047